=== PATIENT | female | born 1995 | race African-American/Black ===

== ENCOUNTER 2018-06-24 12:33 | Inpatient (IN) | payer MEDICAID ==
[~2018-06-24] VITALS: Ht 165.1 cm; Wt 65.8 kg
[~2018-06-24 12:33] MED LIST: NOCURR
[2018-06-24] MEDS ORDERED: ZOLPIDEM TARTRATE 10 MG TABLET PO PRN (18:00)
[2018-06-24] MEDS ORDERED: HALOPERIDOL 5 MG TABLET PO PRN (18:00)
[2018-06-24 18:15] VITALS: BP 110/62
[2018-06-24 18:58] VITALS: BP 97/65
[2018-06-24] MEDS ORDERED: PETROLATUM,WHITE 71 GM JELLY TP PRN (19:15)
[2018-06-24] MEDS ORDERED: GuaiFENesin/D-METHORPHAN [SUGAR-FREE] 200-20MG/10 ML SYRUP UDCUP PO PRN (19:15)
[2018-06-24] MEDS ORDERED: ACETAMINOPHEN 325 MG TABLET PO PRN (19:15)
[2018-06-24] MEDS ORDERED: ALBUTEROL SULFATE HFA 90 MCG/PUFF 8 GM INHALER IH PRN (19:15)
[2018-06-24] MEDS ORDERED: MAG HYDROX/AL HYDROX/SIMETH ES 30 ML SUSPENSION UDCUP PO PRN (19:15)
[2018-06-24] MEDS ORDERED: DOCUSATE SODIUM 100 MG CAPSULE PO PRN (19:15)
[2018-06-24] MEDS ORDERED: ONDANSETRON HCL 4 MG TABLET PO PRN (19:15)
[2018-06-24] MEDS ORDERED: IBUPROFEN 400 MG TABLET PO PRN (19:15)
[2018-06-24] MEDS ORDERED: CloNIDine HCL 0.1 MG TABLET PO PRN (19:15)
[2018-06-24] MEDS ORDERED: MAGNESIUM HYDROXIDE SUSPENSION 30 ML UDCUP PO PRN (19:15)
[2018-06-24] MEDS ORDERED: LOPERAMIDE HCL 2 MG CAPSULE PO PRN (19:15)
[2018-06-24] MEDS: LORazepam 2 MG TABLET PO PRN (19:25)
[2018-06-24] MEDS: OLANZapine 10 MG TABLET PO SCH (20:27)
[2018-06-25 06:31] VITALS: BP 109/68
[2018-06-25 08:09] VITALS: BP 102/56
[2018-06-25 16:06] VITALS: BP 106/71
[2018-06-25] MEDS: OLANZapine 10 MG TABLET PO SCH (20:36)
[2018-06-26 06:09] VITALS: BP 102/63
[2018-06-26 08:25] VITALS: BP 119/78
[2018-06-26 08:31] LABS: BASOPHILS % (AUTO) 0.6 % (0.0-2.0); EOSINOPHILS % (AUTO) 1.2 % (1.0-6.0); HEMATOCRIT 35.4 % (36-46); HEMOGLOBIN 11.7 g/dL (12.0-16.0); LYMPHOCYTES # (AUTO) 2.3 K/uL (1.0-4.8); LYMPHOCYTES % (AUTO) 38.6 % (22.0-44.0); MEAN CORPUSCULAR HEMOGLOBIN 27.9 pg (26.0-34.0); MEAN CORPUSCULAR HGB CONC 32.9 G/dL (31.0-37.0); MEAN CORPUSCULAR VOLUME 85 fL (80-100); MONOCYTES # (AUTO) 0.4 K/uL (0.1-1.0); MONOCYTES % (AUTO) 6.4 % (2.0-9.0); NEUTROPHILS # (AUTO) 3.2 K/uL (1.8-7.7); NEUTROPHILS % (AUTO) 53.2 % (40.0-70.0); PLATELET COUNT (AUTO) 298 K/uL (150-450); RED BLOOD CELL COUNT(AUTO) 4.17 MIL/uL (4.00-5.20); RED CELL DISTRIBUTION WIDTH 14.4 % (11.5-14.5)
[2018-06-26 09:02] LABS: ALANINE AMINOTRANSFERASE 15 U/L (12-78); ALKALINE PHOSPHATASE 63 U/L (46-116); ANION GAP 8 mmol/L (8-16); ASPARTATE AMINOTRANSFERASE 14 U/L (15-37); BILIRUBIN,TOTAL 0.3 mg/dL (0.1-1.0); CALCIUM, TOTAL 8.7 mg/dL (8.8-10.5); CARBON DIOXIDE 28 mmol/L (22-29); CHLORIDE 104 mmol/L (98-107); CHOL/HDL RATIO 3.5 (3.9-5.7); CHOLESTEROL 150 mg/dL (131-200); CREATININE 0.74 mg/dL (0.60-1.30); FREE T4 (FREE THYROXINE) 0.82 ng/dL (0.76-1.46); GLOMERULAR FILTR. RATE CALC > 60 mL/min (>60); GLUCOSE,RANDOM 74 mg/dL (70-110); HCG,QUANTITATIVE < 1 mIU/mL (0-6); HDL CHOLESTEROL 43 mg/dL (40-60); LDL CHOL (CALC.) 87 mg/dL (0-130); POTASSIUM 3.7 mmol/L (3.5-5.1); SODIUM SERUM 140 mmol/L (136-145); THYROID STIMULATING HORMONE 0.58 uIU/mL (0.36-3.74); TOTAL PROTEIN, SERUM 6.6 g/dL (6.4-8.2); TRIGLYCERIDES 99 mg/dL (15-150); UREA NITROGEN, BLOOD 11 mg/dL (7-18)
[2018-06-26 16:20] VITALS: BP 112/64
[2018-06-26 16:53] LABS: FERRITIN 12 ng/mL (8-252)
[2018-06-26] MEDS: OLANZapine 10 MG TABLET PO SCH (20:49)
[2018-06-27 06:21] VITALS: BP 126/72
[2018-06-27 08:04] VITALS: BP 92/60
[2018-06-27 09:30] LABS: % IRON SATURATION 12.1 % (22-44)
[2018-06-27 16:29] VITALS: BP 114/60
[2018-06-27] MEDS: LORazepam 2 MG TABLET PO PRN (16:59)
[2018-06-27] MEDS: FERROUS SULFATE 325 MG EC TABLET PO SCH ×2 (16:59→20:24)
[2018-06-27] MEDS: OLANZapine 10 MG TABLET PO SCH (20:22)
[2018-06-28 06:55] VITALS: BP 105/62
[2018-06-28] MEDS: FERROUS SULFATE 325 MG EC TABLET PO SCH ×4 (07:06→21:06)
[2018-06-28 08:30] VITALS: BP 108/67
[2018-06-28 17:02] VITALS: BP 108/68
[2018-06-28] MEDS: OLANZapine 10 MG TABLET PO SCH (21:06)
[2018-06-29] MEDS: FERROUS SULFATE 325 MG EC TABLET PO SCH ×4 (06:08→20:12)
[2018-06-29 06:59] VITALS: BP 106/77
[2018-06-29 08:08] VITALS: BP 100/67
[2018-06-29 16:01] VITALS: BP 102/68
[2018-06-29] MEDS: OLANZapine 10 MG TABLET PO SCH (20:12)
[2018-06-30 00:43] VITALS: BP 105/68
[2018-06-30] MEDS: FERROUS SULFATE 325 MG EC TABLET PO SCH ×4 (07:23→20:08)
[2018-06-30 08:52] VITALS: BP 112/61
[2018-06-30 16:37] VITALS: BP 117/74
[2018-06-30] MEDS: OLANZapine 10 MG TABLET PO SCH (20:08)
[2018-07-01 02:37] VITALS: BP 121/66
[2018-07-01] MEDS: FERROUS SULFATE 325 MG EC TABLET PO SCH ×4 (06:14→20:03)
[2018-07-01 08:28] VITALS: BP 103/63
[2018-07-01 16:01] VITALS: BP 112/66
[2018-07-01] MEDS: OLANZapine 10 MG TABLET PO SCH (20:04)
[2018-07-02 05:56] VITALS: BP 117/62
[2018-07-02] MEDS: FERROUS SULFATE 325 MG EC TABLET PO SCH ×4 (06:35→20:36)
[2018-07-02 08:20] VITALS: BP 108/68
[2018-07-02] MEDS ORDERED: FERR-89 PO (12:47)
[2018-07-02] MEDS ORDERED: OLAN10TA3 PO (12:47)
[2018-07-02 16:35] VITALS: BP 101/60
[2018-07-02] MEDS: OLANZapine 10 MG TABLET PO SCH (20:36)
[2018-07-03 01:21] VITALS: BP 116/67
[2018-07-03] MEDS: FERROUS SULFATE 325 MG EC TABLET PO SCH ×4 (06:40→20:28)
[2018-07-03 08:01] VITALS: BP 97/64
[2018-07-03 16:05] VITALS: BP 102/70
[2018-07-03] MEDS: OLANZapine 10 MG TABLET PO SCH (20:28)
[2018-07-04 00:43] VITALS: BP 103/64
[2018-07-04] MEDS: FERROUS SULFATE 325 MG EC TABLET PO SCH ×4 (06:36→20:11)
[2018-07-04 16:09] VITALS: BP 94/63
[2018-07-04] MEDS: OLANZapine 10 MG TABLET PO SCH (20:11)
[2018-07-05 00:43] VITALS: BP 102/65
[2018-07-05] MEDS: FERROUS SULFATE 325 MG EC TABLET PO SCH ×4 (06:44→20:19)
[2018-07-05 08:09] VITALS: BP 103/58
[2018-07-05 16:17] VITALS: BP 102/68
[2018-07-05] MEDS: OLANZapine 10 MG TABLET PO SCH (20:19)
[2018-07-06] MEDS: FERROUS SULFATE 325 MG EC TABLET PO SCH ×4 (06:32→20:15)
[2018-07-06 08:11] VITALS: BP 110/64
[2018-07-06 16:12] VITALS: BP 102/59
[2018-07-06] MEDS: OLANZapine 10 MG TABLET PO SCH (20:15)
[2018-07-07 01:05] VITALS: BP 103/62
[2018-07-07] MEDS: FERROUS SULFATE 325 MG EC TABLET PO SCH (07:03)
[2018-07-07 08:03] VITALS: BP 92/65
== END 2018-07-07 10:15 | disposition home or self-care (01) | DRG 750 ==
LOC: B3A 18:57 → B2S 06-28 13:08
PROVIDERS: ADMIT Psychiatry & Neurology Child & Adolescent Psychiatry; ATTEND Psychiatry & Neurology Child & Adolescent Psychiatry
DX: F25.9 Schizoaffective disorder, unspecified (principal); I95.9 Hypotension, unspecified; D50.9 Iron deficiency anemia, unspecified; K59.00 Constipation, unspecified; R10.13 Epigastric pain; Z59.0 Homelessness
CPT/HCPCS: 82728; 83036; 83540; 83550; 84439; 84443; 87081; 90686